=== PATIENT | female | born 1965 ===

== ENCOUNTER → 2018-06-27 | Outpatient (CLI) | payer OTHER ==
[~2018-06-27] MED LIST: ASCO100T15 PO; BIOT1CAP; CEPH250C37 PO; CHOL100052 PO; FLU60SYR36 IM; LOSA50TA80 PO; VITA-175 PO
== END ==
LOC: LAB 08:56
PROVIDERS: ATTEND Emergency Medicine
DX: I10 Essential (primary) hypertension (principal)
CPT/HCPCS: 36415; 82310; 82374; 82435; 82565; 82947; 84132; 84295; 84520

== ENCOUNTER → 2018-10-05 | Day surgery (SDC) | payer OTHER ==
[~2018-10-05] VITALS: Ht 177.8 cm; Wt 71.7 kg
[~2018-10-05] MED LIST changes: +ASCO-246 PO; +BIOT1TAB2 PO; +GLYCOPYRROLATE 0.2MG/ML 1 ML INJ IVP ONE; +LIDOCAINE MPF 1% 5 ML VIAL ONE; +LIDOCAINE/SOD BICARB 8.4% SYR ID ONE; +NORMOSOL R SOLN(*) 1000 ML BAG 1,000 ML IV PRN; +PROPOFOL EMUL(*) 10MG/ML 20 ML 40 ML ONE
[2018-10-05 06:30] VITALS: BP 135/96
[2018-10-05 09:31] VITALS: BP 101/61
--- NOTE | 2018-10-05 09:36 | Short(Outpt) Discharge Summary ---
Discharge Summary Reason for Hosp/Final Diag: (1) Fecal occult blood test positive Hospital Course & Plan: pt presented for egd and colonoscopy. she tolerated the procedures well and there were no complications. she will be discharged home when criteria met. Discharge Instructions Home Meds Active Scripts Losartan Potassium (LOSARTAN POTASSIUM) 50 Mg Tablet, 1 TAB PO QDAY, #90 TAB 3 Refills Prov:JENNIFER JORDAN MD 10/04/18 Reported Medications Biotin/Keratin (Biotin Plus Keratin Tablet) 1 Each Tablet, TAB PO DAILY 09/28/18 Ascorbic Acid (VITAMIN C WITH ALLIE HIPS) 500 Mg Tablet, 500 MG PO DAILY 09/28/18 Vitamin B Complex (B COMPLEX) 1 Each Tablet, 1 EACH PO QODAY 06/12/18 Cholecalciferol (Vitamin D3) (VITAMIN D) 1,000 Unit Tablet, 1000 UNIT PO DAILY 06/12/18 Discontinued Reported Medications Ascorbic Acid (VITAMIN C) Unknown Strength Tablet, PO 06/12/18 Biotin (BIOTIN) Unknown Strength Capsule 06/12/18 Diet: Regular Activity: As Tolerated Special Instructions: we will call you in 10 days with biopsy results PRAMOD VALDEZ October 05, 2018 09:36
[2018-10-05 10:01] VITALS: BP 107/74
[2018-10-05 10:30] VITALS: BP 116/80
--- NOTE | 2018-10-05 10:48 | OPERATIVE REPORT 1 ---
EVENT DATE: October 05, 2018 SURGEON: Mark Lemons MD ANESTHESIOLOGIST: Ankur Rice MD ANESTHESIA: MAC. ADMITTING SUPERVISOR: None. PREOPERATIVE DIAGNOSIS Occasional diarrhea and positive fecal occult blood test. POSTOPERATIVE DIAGNOSIS Occasional diarrhea and positive fecal occult blood test. PROCEDURE PERFORMED Esophagogastroduodenoscopy and colonoscopy. FLUIDS IV crystalloid. ESTIMATED BLOOD LOSS Minimal. SPECIMENS Biopsies from duodenum and antrum. COMPLICATIONS None. INDICATIONS This is a 53-year old female with occasional diarrhea. She also did a stool test and it was positive for blood. Risks and benefits of the procedure were explained and consent was signed. DESCRIPTION OF PROCEDURE Patient was taken to the GI suite and placed in the supine position. MAC anesthesia was administered per the Anesthesia team. Patient was then placed in the left lateral position with a bite block. The gastroscope was advanced through the oropharynx, down the esophagus and into the stomach. There was mild gastritis in the antrum. The scope was retroflexed. The cardia and fundus were unremarkable. The scope was advanced to the first and second portions of the duodenum and these were unremarkable as well. The gastroscope was slowly withdrawn. Biopsies were taken from the first portion of the duodenum as well as from the antrum. The scope was withdrawn into the esophagus. Z-line was regular. There was no hiatal hernia. The esophagus was unremarkable. The gastroscope was withdrawn. The patient tolerated the procedure well. We then turned our attention to the colonoscopy. Digital rectal exam and perianal exam were unremarkable. Colonoscope was advanced through the anus to the cecum under direct vision. The cecum was identified by the appendiceal orifice and ileocecal valve. The colonoscope was slowly withdrawn, examining the mucosa along the entire length of the colon. The prep was adequate to identify any polyps greater than 6 mm. There were no polyps, no masses, no colitis. No diverticula. The exam was normal. No biopsies were taken. Carbon dioxide was suctioned prior to withdrawing the scope. The patient tolerated the procedure well. There were no complications. EMILIANA
[2018-10-05 10:57] VITALS: BP 141/93
[2018-10-05 11:00] VITALS: BP 139/102
== END ==
LOC: OR 00:42
PROVIDERS: ATTEND Surgery
DX: R19.7 Diarrhea, unspecified (principal)
CPT/HCPCS: 00813; 43239; 45378; 87077; 88305; 88342; J2001; J2704; J3490